=== PATIENT | female | born 1970 | race Caucasian/White ===

== ENCOUNTER 2017-02-14 17:14 | Observation (INO) ==
[2017-02-14 19:02] VITALS: BMI 35.2
--- OUTSIDE RECORDS SUMMARY | 2017-02-14 19:31 | External Medical Summary | Referral Summary ---
:1970 Author Organization [facility] Address [address] [place] [address] Care Team Providers Name Role Phone Rubens Guerra Primary Care Physician Encounter VC Date(s): 09/17/15 - 09/17/15 [facility] [address] [place] [address]- [place] Discharge Disposition: 01-Home or Self Care Attending Physician: Rahul Hood MD Admitting Physician: Rahul Hood MD Vital Signs Most recent to oldest [Reference Range]: 1 Respiratory Rate [14-20 br/min] 18 br/min (09/17/15 10:10 AM) Problem List Condition Effective Dates Status Health Status Informant Hypertension(Confirmed) Active Allergies, Adverse Reactions, Alerts No Known Medication Allergies Medications Advil 400 mg, Oral, q6hr, 0 Refill(s) Start Date: 09/01/15 Status: Orderedhydrochlorothiazide 12.5 mg oral tablet mg tabs, Oral, Daily, 0 Refill(s) Start Date: 05/20/15 Status: Orderedmeloxicam 15 mg oral tablet 15 mg 1 tabs, Oral, Daily, # 20 tabs, 1 Refill(s), Pharmacy: [facility] # [id number], 1 tabs Oral Daily Start Date: 06/12/15 Status: OrderedPercocet 5/325 oral tablet 1 tabs, Oral, q4hr, as needed for pain, # 60 tabs, 0 Refill(s) Start Date: 08/21/15 Stop Date: 08/31/15 Status: Orderedsertraline 50 mg oral tablet mg tabs, Oral, Daily, 0 Refill(s) Start Date: 05/20/15 Status: Ordered Results No data available for this section Immunizations No data available for this section Procedures Procedure Date Related Diagnosis Body Site LeftLeft shoulder arthroscopy with repair of 08/21/15 supraspinatus tendon tear1 Cholecystectomy Diagnostic laparoscopy of female pelvis 1Left shoulder arthroscopy with repair of supraspinatus tendon tear Social History Social History Type Response Smoking Status Former smoker; Type: Cigarettes; Number of years: 15 Assessment and Plan No data available for this section
--- OUTSIDE RECORDS SUMMARY | 2017-02-14 19:31 | External Medical Summary | Referral Summary ---
:1970 Author Organization [facility] Address [address] [place] [address] [place] [address] Care Team Providers Name Role Phone Rubens Guerra Primary Care Physician Encounter VC Date(s): 05/29/15 - 05/29/15 [facility] [address] [place] [address] Discharge Diagnosis: Left shoulder pain Discharge Disposition: 01-Home or Self Care Attending Physician: Tera Kelly MD Admitting Physician: Tera Kelly MD Vital Signs Most recent to oldest [Reference Range]: 1 Temperature Tympanic [36.6-38.1 degC] 36.5 degC *LOW* (05/29/15 3:34 PM) Peripheral Pulse Rate [60-100 bpm] 72 bpm (05/29/15 3:34 PM) Blood Pressure [90-140/60-90 mmHg] 119/72 mmHg (05/29/15 3:34 PM) Problem List No data available for this section Allergies, Adverse Reactions, Alerts No Known Medication Allergies Medications hydrochlorothiazide 12.5 mg oral tablet mg tabs, Oral, Daily, 0 Refill(s) Start Date: 05/20/15 Status: Orderedmeloxicam 15 mg oral tablet 15 mg 1 tabs, Oral, Daily, # 20 tabs, 0 Refill(s), Pharmacy: [facility] # [id number], To be filled when current supply expires, 1 tabs Oral Daily Start Date: 05/29/15 Status: Orderedsertraline 50 mg oral tablet mg tabs, Oral, Daily, 0 Refill(s) Start Date: 05/20/15 Status: Ordered Results No data available for this section Immunizations No data available for this section Procedures No data available for this section Social History Social History Type Response Smoking Status Former smoker; Type: Cigarettes; Number of years: 15 Assessment and Plan Extracted from: Title: Work comp follow up-left shoulder Author: Tera Kelly MD Date: 05/29/15 Assessment/Plan Left shoulder pain Orders: meloxicam, 15 mg 1 tabs, Oral, Daily, # 20 tabs, 0 Refill(s), Pharmacy: [facility] #[id number], To be filled when current supply expires, 1 tabs Oral Daily Shoulder sprain. I reviewed the prior x-ray which was negative. We'll continue meloxicam and range of motion exercises. Refer for physical therapy. Follow-up again in 2 weeks or sooner if needed.
--- OUTSIDE RECORDS SUMMARY | 2017-02-14 19:31 | External Medical Summary | Referral Summary ---
:1970 Author Organization [facility] Address [address] [place] [address] Care Team Providers Name Role Phone Rubens Guerra Primary Care Physician Encounter VC Date(s): 03/05/16 - 03/05/16 [facility] [address] [place] [address]- [place] Discharge Diagnosis: Follow-up examination after orthopedic surgery Discharge Disposition: 01-Home or Self Care Attending Physician: Rahul Hood MD Admitting Physician: Rahul Hood MD Vital Signs Most recent to oldest [Reference Range]: 1 Respiratory Rate [14-20 br/min] 18 br/min (03/05/16 12:04 PM) Problem List Condition Effective Dates Status Health Status Informant Hypertension(Confirmed) Active Motion sickness(Confirmed) Active patient Obesity(Confirmed) Active patient Allergies, Adverse Reactions, Alerts No Known Medication Allergies Medications Advil 400 mg, Oral, q6hr, 0 Refill(s) Start Date: 09/01/15 Status: Orderedhydrochlorothiazide 12.5 mg oral tablet mg tabs, Oral, Daily, 0 Refill(s) Start Date: 05/20/15 Status: Orderedmeloxicam 15 mg oral tablet 15 mg 1 tabs, Oral, Daily, # 20 tabs, 1 Refill(s), Pharmacy: [facility] # [id number], 1 tabs Oral Daily Start Date: 06/12/15 Status: Orderedsertraline 50 mg oral tablet mg tabs, Oral, Daily, 0 Refill(s) Start Date: 05/20/15 Status: Ordered Results No data available for this section Immunizations No data available for this section Procedures Procedure Date Related Diagnosis Body Site Arthroscopy of shoulder with limited debridement1 02/11/16 LeftLeft shoulder arthroscopy with repair of 08/21/15 supraspinatus tendon tear2 Cholecystectomy Diagnostic laparoscopy of female pelvis 1Left shoulder arthroscopy with subacromial decompression and minor debridement of fibrotic material.2Left shoulder arthroscopy with repair of supraspinatus tendon tear Social History Social History Type Response Smoking Status Former smoker; Type: Cigarettes; Number of years: 15 Assessment and Plan No data available for this section
--- OUTSIDE RECORDS SUMMARY | 2017-02-14 19:31 | External Medical Summary | Referral Summary ---
:1970 Author Organization [facility] Address [address] [place] [address] Care Team Providers Name Role Phone Rubens Guerra Primary Care Physician Encounter VC Date(s): 10/03/15 - 10/03/15 [facility] [address] [place] [address]- Discharge Diagnosis: Follow-up examination after orthopedic surgery Discharge Disposition: 01-Home or Self Care Attending Physician: Rahul Hood MD Admitting Physician: Rahul Hood MD Vital Signs Most recent to oldest [Reference Range]: 1 Respiratory Rate [14-20 br/min] 18 br/min (10/03/15 10:35 AM) Problem List Condition Effective Dates Status [...] Daily, # 20 tabs, 1 Refill(s), Pharmacy: [facility] # [id number], 1 tabs Oral Daily Start Date: 06/12/15 [...] 15 Assessment and Plan Extracted from: Title: Office Visit Note Author: Rahul Hood MD Date: 10/03/15 Assessment/Plan 1.Follow-up examination after orthopedic surgery She willcontinue with physical therapy. She is to continue workingwithout restrictions. The patient isto return to clinic in approximately 3 weeks for reevaluation. Ordered: Postoperative Est [id number]
--- OUTSIDE RECORDS SUMMARY | 2017-02-14 19:31 | External Medical Summary | Referral Summary ---
:1970 Author [facility] Address [address] [place] [address] [place] [address] Care Team Providers Name Role Phone Rubens Guerra Primary Care Physician Encounter VC Date(s): 06/12/15 - 06/12/15 [facility] [address] [place] [id number] Discharge Diagnosis: Left shoulder pain Discharge Disposition: 01-Home or Self Care Attending Physician: Tera Kelly MD Admitting Physician: Tera Kelly MD Vital Signs Most recent to oldest [Reference Range]: 1 Temperature Tympanic [36.6-38.1 degC] 36.7 degC (06/12/15 3:18 PM) Peripheral Pulse Rate [60-100 bpm] 75 bpm (06/12/15 3:18 PM) Blood Pressure [90-140/60-90 mmHg] 117/77 mmHg (06/12/15 3:18 PM) Problem List No data available for this section Allergies, Adverse Reactions, Alerts No Known Medication Allergies Medications hydrochlorothiazide 12.5 mg oral tablet mg tabs, Oral, Daily, 0 Refill(s) Start Date: 05/20/15 Status: Orderedmeloxicam 15 mg oral tablet 15 mg 1 tabs, Oral, Daily, # 20 tabs, 1 Refill(s), Pharmacy: [facility] # [id number], 1 tabs Oral Daily Start Date: 06/12/15 [...] Extracted from: Title: Office Visit Note Author: Tera Kelly MD Date: 06/12/15 Assessment/Plan Left shoulder pain Orders: meloxicam, 15 mg 1 tabs, Oral, Daily, # 20 tabs, 1 Refill(s), Pharmacy: [facility] #[id number], 1 tabs Oral Daily Continue current management including continued meloxicam. Once again we we' ll try to get physical therapy arranged. Follow-up with me again in 2-3 more weeks.
--- OUTSIDE RECORDS SUMMARY | 2017-02-14 19:31 | External Medical Summary | Referral Summary ---
:1970 Author Organization [facility] Address [address] [place] [address] Care Team Providers Name Role Phone Rubens Guerra Primary Care Physician Encounter VC Date(s): 02/27/16 - 02/27/16 [facility] [address] [place] [address]- Discharge Diagnosis: Follow-up examination after orthopedic surgery Discharge Disposition: 01-Home or Self Care Attending Physician: Rahul Hood MD Admitting Physician: Rahul Hood MD Vital Signs Most recent to oldest [Reference Range]: 1 Respiratory Rate [14-20 br/min] 18 br/min (02/27/16 11:29 AM) Problem List Condition Effective Dates Status [...] Daily, # 20 tabs, 1 Refill(s), Pharmacy: [facility] # [id number], 1 tabs Oral Daily Start Date: 06/12/15 [...]
--- OUTSIDE RECORDS SUMMARY | 2017-02-14 19:31 | External Medical Summary | Referral Summary ---
:1970 Author Organization [facility] Address [address] [place] [address] Care Team Providers Name Role Phone Rubens Guerra Primary Care Physician Encounter VC Date(s): 02/11/16 - 02/11/16 [facility] [address] [place], [place] [address] Discharge Diagnosis: Subacromial impingement of left shoulder Discharge Disposition: 01-Home or Self Care Attending Physician: Rahul Hood MD Admitting Physician: Rahul Hood MD Vital Signs Most recent to oldest [Reference Range]: 1 Temperature Temporal Artery [36.3-37.8 degC] 36.7 degC (02/11/16 8:47 AM) Peripheral Pulse Rate [60-100 bpm] 63 bpm (02/11/16 8:47 AM) Respiratory Rate [14-20 br/min] 20 br/min (02/11/16 8:47 AM) Blood Pressure [90-140/60-90 mmHg] 166/93 mmHg *HI* (02/11/16 8:47 AM) SpO2 96 % (02/11/16 8:47 AM) Problem List Condition Effective Dates Status [...] Daily, # 20 tabs, 1 Refill(s), Pharmacy: [facility] # [id number], 1 tabs Oral Daily Start Date: 06/12/15 Status: OrderedPercocet 5/325 oral tablet 1 tabs, Oral, q4hr, as needed for pain, # 60 tabs, 0 Refill(s) Start Date: 02/11/16 Stop Date: 02/21/16 Status: OrderedPercocet 5/325 oral tablet 1 tabs, Oral, q4hr, as needed for pain, # 60 tabs, 0 Refill(s) Start Date: 08/21/15 Stop Date: 08/31/15 Status: Orderedsertraline 50 mg oral tablet mg tabs, Oral, Daily, 0 Refill(s) Start Date: 05/20/15 Status: Ordered Results Chemistry Most recent to oldest [Reference Range]: 1 Potassium Venous [3.5-5.1 mmol/L] 3.9 mmol/L 1 (02/11/16 9:10 AM) 1Result Comment: This test was performed on a whole blood specimen. The presence or absence of hemolysis cannot be assessed. Hemolysis can falsely elevate potassium levels. Normals are for venous specimens only. Immunizations No data available for this section Procedures Procedure Date Related Diagnosis Body Site LeftLeft shoulder arthroscopy with repair of 08/21/15 supraspinatus tendon tear1 Cholecystectomy Diagnostic laparoscopy of female pelvis 1Left shoulder arthroscopy with repair of supraspinatus tendon tear Social History Social History Type Response Smoking Status Former smoker; Type: Cigarettes; Number of years: 15 Assessment and Plan Extracted from: Title: Ambulatory Patient Education Author: Doris Leon RN Date: 02/11/[address] [facility] [place] [phone] Post Op Shoulder Arthroscopy Directions Via [facility], Dr. Rahul Hood M.D. General Instructions: Take aspirin 325 mg once a day for 10 days post op. This will reduce the risk of developing a blood clot in the extremities. Next dose of pain medicine may be given at Take your pain medication as directed with food to prevent stomach upset. You may also want to take a stool softener, as some narcotic medications can cause constipation. Use your TENS unit at a minimum 20 min. 3 times per day, however there is no maximum time limit to the use of the TENS. Do NOT drive or operate heavy machinery for the next 24 hrs or WHILE TAKING PAIN MEDICATION. Do not sign any important documents or make important decisions for 24 hrs following surgery. When taking pain medication, be careful as you walk or climb stairs as dizziness is common. Check temperature every FOUR hours during the day for TWO days, call Dr. Hood if greater than 100.4 F Icing and Elevation One of the keys to success after surgery is the prevention of swelling. The best way to reduce swelling is to elevate your shoulder. Use of a recliner or pillows will be helpful throughout the day and night. You should also use the ice machine or ice packs regularly. If using ice packs, please avoid direct contact with the skin and only keep the ice on for 20 minutes at a time. Immediately after surgery, the dressing will remain on and it is OK to leave ice on constantly as the dressing provides a buffer against the cold. Please leave the dressing on until you return to the clinic. You can bathe , however you must keep the dressing dry! Sling/immobilizer and Activity You will need to remain in your sling/immobilizer with exception of bathing , changing clothes, and to do your home exercise program. You should sleep with immobilizer on. Complete home exercise program as directed post-op (elbow, wrist and hand range of motion, pendulums) 3 times per day at minimum. See illustrations for directions. Weeks 1-6 keep all exercises at PASSIVE only. Your repair needs time to heal back into the bone. Avoid lifting or sudden jerking motions, reaching behind back or weight bearing. Avoid overstressing healing tissue. You may heat prior to stretching/exercising and ice after stretching/ exercising. Return to clinic You will return to clinic in 5-7 days post op for suture removal, your dressing should remain on until then. Contact information If you have any further questions, please contact Dr. Menjivar office at . Dr. Menjivar nurse will promptly assist you. In an emergency, call [phone] or , if you cannot reach your physician. If you find that you cannot contact your physician, but feel that your signs and symptoms warrant a physici ans attention, go to the Emergency Room closest to you. [facility] [place] [phone] Shoulder ROM: Pendulum (Circular) Let arm move in [place] clockwise then counterclockwise, by rocking body weight in circular pattern. [place] 25 times each direction per set. Do 1 set per session. Do 3 sessions per day. AROM: Elbow Flexion/Extension With hand palm Up, gently bend elbow as far as possible. Then Straighten arm as far as possible. Repeat 25 times per set. Do 1 set per session. Do 3 sessions per day. Wrist circumduction (Active) With fingers curls, move slowly at wrist in clockwise circles 25 times Repeat counterclockwise Do not move elbow or shoulder Do 1 set per session Do 3 sessions per day. No follow up information was provided.
--- OUTSIDE RECORDS SUMMARY | 2017-02-14 19:31 | External Medical Summary | Referral Summary ---
:1970 Author Organization [facility] Address [address] [place] [address] Care Team Providers Name Role Phone Rubens Guerra Primary Care Physician Encounter VC Date(s): 10/24/15 - 10/24/15 [facility] [address] [place] [address] [place] Discharge Diagnosis: Follow-up examination after orthopedic surgery Discharge Disposition: 01-Home or Self Care Attending Physician: Rahul Hood MD Admitting Physician: Rahul Hood MD Vital Signs Most recent to oldest [Reference Range]: 1 Respiratory Rate [14-20 br/min] 18 br/min (10/24/15 11:02 AM) Problem List Condition Effective Dates Status [...] Daily, # 20 tabs, 1 Refill(s), Pharmacy: [facility] # [id number], 1 tabs Oral Daily Start Date: 06/12/15 [...] Visit Note Author: Rahul Hood MD Date: 10/24/15 Assessment/Plan 1.Follow-up examination after orthopedic surgery I talked to the patient about the treatment options. We will continue with physical therapyto work on strength and range of motion. The patie nt will return to our clinic in1 month for reevaluation. She was provided a release to return to work full duty without restrictions. Ordered: Postoperative Est [id number]
--- OUTSIDE RECORDS SUMMARY | 2017-02-14 19:32 | External Medical Summary | Referral Summary ---
:1970 Author Organization [facility] Address [address] [place] [address] Care Team Providers Name Role Phone Rubens Guerra Primary Care Physician Encounter VC Date(s): 09/01/15 - 09/01/15 [facility] [address] [place] [address]- Discharge Diagnosis: Follow-up examination after orthopedic surgery Discharge Disposition: 01-Home or Self Care Attending Physician: Rahul Hood MD Admitting Physician: Rahul Hood MD Vital Signs Most recent to oldest [Reference Range]: 1 Respiratory Rate [14-20 br/min] 18 br/min (09/01/15 10:26 AM) Problem List Condition Effective Dates Status [...] Daily, # 20 tabs, 1 Refill(s), Pharmacy: [facility] # [id number], 1 tabs Oral Daily Start Date: 06/12/15 [...] Visit Note Author: Rahul Hood MD Date: 09/01/15 Assessment/Plan 1.Follow-up examination after orthopedic surgery She will begin physical therapy twice per week for the next 2 weeks. I will see the patient back in clinic in 2 weeks for reevaluation. She is to remain in the sling untilthe next follow-up appointment. Ordered: Postoperative Est [id number] Orders: Request for Therapies
--- OUTSIDE RECORDS SUMMARY | 2017-02-14 19:32 | External Medical Summary | Referral Summary ---
:1970 Author Organization [facility] Address [address] [place] [address] [place] [address] Care Team Providers Name Role Phone Rubens Guerra Primary Care Physician Encounter VC Date(s): 05/20/15 - 05/20/15 [facility] [address] [place] [address] Discharge Diagnosis: Left shoulder pain Discharge Disposition: 01-Home or Self Care Attending Physician: Tera Kelly MD Admitting Physician: Tera Kelly MD Vital Signs Most recent to oldest [Reference Range]: 1 Temperature Tympanic [36.6-38.1 degC] 36.3 degC *LOW* (05/20/15 4:23 PM) Peripheral Pulse Rate [60-100 bpm] 65 bpm (05/20/15 4:23 PM) Blood Pressure [90-140/60-90 mmHg] 139/80 mmHg (05/20/15 4:23 PM) Problem List No data available for this section Allergies, Adverse Reactions, Alerts No Known Medication Allergies Medications hydrochlorothiazide 12.5 mg oral tablet mg tabs, Oral, Daily, 0 Refill(s) Start Date: 05/20/15 Status: Orderedmeloxicam 15 mg oral tablet 15 mg 1 tabs, Oral, Daily, # 20 tabs, 0 Refill(s), Pharmacy: [facility] # [id number], 1 tabs Oral Daily Start Date: 05/20/15 Status: Orderedsertraline 50 mg oral tablet mg [...] Extracted from: Title: Ambulatory Patient Education Author: Tera Kelly MD Date: Family Medicine Shoulder Range of Motion Exercises The shoulder is the most flexible joint in the human body. Because of this it is also the most unstable joint in the body. All ages can develop shoulder problems. Early treatment of problems is necessar y for a good outcome. People react to shoulder pain by decreasing the movement of the joint. After a brief period of time, the shoulder can become "frozen". This is an almost complete loss of the abilit y to move the damaged shoulder. Following injuries your caregivers can give you instructions on exercises to keep your range of motion (ability to move your shoulder freely), or regain it if it has been lost. EXERCISES EXERCISES TO MAINTAIN THE MOBILITY OF YOUR SHOULDER: Codman's Exercise or Pendulum Exercise This exercise may be performed in a prone (face-down) lying position or standing while leaning on a chair with the opposite arm. Its purpose is to relax the muscles in your shoulder and slowly but surely increase the range of motion and to relieve pain. Lie on your stomach close to the side edge of the bed. Let your weak arm hang over the edge of the bed. Relax your shoulder, arm and hand. Let your shoulder blade relax and drop down. Slowly and gently swing your arm forward and back. Do not use your neck muscles; relax them. It might be easier to have someone else gently start swinging your arm. As pain decreases, increase your swing. To start, arm swing should begin at 15 degree angles. In time and as pain lessens, move to 30-45 degree angles. Start with swinging for about 15 seconds, and work towards swinging for 3 to 5 minutes. This exercise may also be performed in a standing/bent over position. Stand and hold onto a sturdy chair with your good arm. Bend forward at the waist and bend your knees slightly to help protect your back. Relax your weak arm, let it hang limp. Relax your shoulder blade and let it drop. Keep your shoulder relaxed and use body motion to swing your arm in small circles. Stand up tall and relax. Repeat motion and change direction of circles. Start with swinging for about 30 seconds, and work towards swinging for 3 to 5 minutes. STRETCHING EXERCISES: Lift your arm out in front of you with the elbow bent at 90 degrees. Using your other arm gently pull the elbow forward and across your body. Bend one arm behind you with the palm facing outward. Using the other arm , hold a towel or rope and reach this arm up above your head, then bend it at the elbow to move your wrist to behind your ne ck. Grab the free end of the towel with the hand behind your back. Gently pull the towel up with the hand behind your neck, gradually increasing the pull on the hand behind the small of your back. Then, gradually pull down with the hand behind the small of your back. This will pull the hand and arm behind your neck further. Both shoulders will have an increased range of motion with repetition of this exercise. STRENGTHENING EXERCISES: Standing with your arm at your side and straight out from your shoulder with the elbow bent at 90 degrees, hold onto a small weight and slowly raise your hand so it points straight up in the air. R epeat this five times to begin with, and gradually increase to ten times. Do this four times per day. As you grow stronger you can gradually increase the weight. Repeat the above exercise, only this time using an elastic band. Start with your hand up in the air and pull down until your hand is by your side. As you grow stronger, gradually increase the amoun t you pull by increasing the number or size of the elastic bands. Use the same amount of repetitions. Standing with your hand at your side and holding onto a weight, gradually lift the hand in front of you until it is over your head. Do the same also with the hand remaining at your side and lift th e hand away from your body until it is again over your head. Repeat this five times to begin with, and gradually increase to ten times. Do this four times per day. As you grow stronger you can gradually increase the weight. Document Released: 01/29/2004 Document Revised: 05/07/2014 Document Reviewed: 05/02/2006 ExitCare Patient Information 2015 [employer], [facility]. This information is not intended to replace advice given to you by your health care provider. Make sure you discuss any questions you have with your health care provider. No follow up information was provided. Extracted from: Title: Workmen's Comp. Author: Tera Kelly MD Date: 05/20/15 Assessment/Plan Left shoulder pain Ordered: XR Shoulder Complete Left Orders: meloxicam, 15 mg 1 tabs, Oral, Daily, # 20 tabs, 0 Refill(s), Pharmacy: [facility] #[id number], 1 tabs Oral Daily X-rays appear negative. Will use anti-inflammatory. May also use ice or heat. I emphasized importance of maintaining range of motion and demonstrated pendulum exercises. Follow-up in about 10 days or sooner if needed.
--- OUTSIDE RECORDS SUMMARY | 2017-02-14 19:32 | External Medical Summary | Referral Summary ---
:1970 Author Organization [facility] Address [address] [place] [address] Care Team Providers Name Role Phone Rubens Guerra Primary Care Physician Encounter VC Date(s): 12/26/15 - 12/26/15 [facility] [address] [place] [address] [place] Discharge Disposition: 01-Home or Self Care Attending Physician: Rahul Hood MD Admitting Physician: Rahul Hood MD Vital Signs Most recent to oldest [Reference Range]: 1 Respiratory Rate [14-20 br/min] 18 br/min (12/26/15 10:53 AM) Problem List Condition Effective Dates Status [...] Daily, # 20 tabs, 1 Refill(s), Pharmacy: [facility] # [id number], 1 tabs Oral Daily Start Date: 06/12/15 Status: OrderedPercocet 5/325 oral tablet 1 tabs, Oral, q4hr, as needed for pain, # 60 tabs, 0 Refill(s) Start Date: 08/21/15 Stop Date: 08/31/15 Status: Orderedsertraline 50 mg oral tablet mg tabs, Oral, Daily, 0 Refill(s) Start Date: 05/20/15 Status: Ordered Results Chemistry Most recent to oldest [Reference Range]: 1 Estimated Creatinine Clearance 88.95 mL/min (12/26/15 10:55 AM) Immunizations No data available for this section [...]
--- OUTSIDE RECORDS SUMMARY | 2017-02-14 19:32 | External Medical Summary | Referral Summary ---
:1970 Author Organization [facility] Address [address] [place] [address] Care Team Providers Name Role Phone Rubens Guerra Primary Care Physician Encounter VC Date(s): 04/23/16 - 04/23/16 [facility] [address] [place] [address] [place] Discharge Diagnosis: Left shoulder pain Discharge Disposition: 01-Home or Self Care Attending Physician: Rahul Hood MD Admitting Physician: Rahul Hood MD Vital Signs Most recent to oldest [Reference Range]: 1 Respiratory Rate [14-20 br/min] 20 br/min (04/23/16 11:06 AM) Problem List Condition Effective Dates Status [...] Refill(s), Pharmacy: [facility] # [id number], 1 tabs Oral Daily Start Date: 06/12/15 Status: Orderedsertraline 50 mg oral tablet mg tabs, Oral, Daily, 0 Refill(s) Start Date: 05/20/15 Status: OrderedVoltaren 1% topical gel 4 g, Topical, QID, as needed for pain, not to exceed 16 grams/day/single joint of lower extremities,# 100 g, 0 Refill(s) Start Date: 03/26/16 Status: Ordered Results No data available for [...]
--- OUTSIDE RECORDS SUMMARY | 2017-02-14 19:32 | External Medical Summary | Referral Summary ---
:1970 Author Organization [facility] Address [address] [place] [address] Care Team Providers Name Role Phone Rubens Guerra Primary Care Physician Encounter VC Date(s): 02/20/16 - 02/20/16 [facility] [address] [place] [address]- Discharge Diagnosis: Follow-up examination after orthopedic surgery Discharge Disposition: 01-Home or Self Care Attending Physician: Rahul Hood MD Admitting Physician: Rahul Hood MD Vital Signs Most recent to oldest [Reference Range]: 1 Respiratory Rate [14-20 br/min] 18 br/min (02/20/16 11:02 AM) Problem List Condition Effective Dates [...] Daily, # 20 tabs, 1 Refill(s), Pharmacy: [facility] # [id number], 1 tabs Oral Daily Start Date: 06/12/15 [...]
--- OUTSIDE RECORDS SUMMARY | 2017-02-14 19:32 | External Medical Summary | Referral Summary ---
:1970 Author Organization [facility] Address [address] [place] [address] Care Team Providers Name Role Phone Rubens Guerra Primary Care Physician Encounter VC Date(s): 05/25/16 - 05/25/16 [facility] [address] [place] [address] [place] Discharge Diagnosis: Left shoulder pain Discharge Disposition: 01-Home or Self Care Attending Physician: Rahul Hood MD Admitting Physician: Rahul Hood MD Vital Signs Most recent to oldest [Reference Range]: 1 Respiratory Rate [14-20 br/min] 18 br/min (05/25/16 2:10 PM) Problem List Condition Effective Dates Status [...] Daily, # 20 tabs, 1 Refill(s), Pharmacy: [facility] # [id number], 1 tabs Oral Daily Start Date: 06/12/15 [...] Visit Note Author: Rahul Hood MD Date: 05/25/16 Assessment/Plan 1.Left shoulder pain She will continue a home exercise programover the ensuing weeks. She can return to workduty without restrictions. She will have no permanent restrictions applied. She is currently at her maximal medical improvement and therefore we will provide her with release from our care today. Based on the [place] [employer] Association'ssixth editionguides,she has a 10 percent permanent pa rtial impairment rating of the left upper extremity at the level of the shoulder. There is no significant anticipated need for continued physical therapyor other treatment in the future. Ordered: Office Visit Level 2 Est [id number]
--- OUTSIDE RECORDS SUMMARY | 2017-02-14 19:32 | External Medical Summary | Referral Summary ---
:1970 Author Organization [facility] Address [address] [place] [address] Care Team Providers Name Role Phone Rubens Guerra Primary Care Physician Encounter VC Date(s): 08/21/15 - 08/21/15 [facility] [address] [place], [place] [address] Discharge Diagnosis: Partial tear of left rotator cuff Discharge Disposition: 01-Home or Self Care Attending Physician: Rahul Hood MD Admitting Physician: Rahul Hood MD Vital Signs Most recent to oldest [Reference Range]: 1 Temperature Temporal Artery [36.3-37.8 degC] 36.7 degC (08/21/15 8:58 AM) Peripheral Pulse Rate [60-100 bpm] 59 bpm *LOW* (08/21/15 8:58 AM) Respiratory Rate [14-20 br/min] 18 br/min (08/21/15 8:58 AM) Blood Pressure [90-140/60-90 mmHg] 116/81 mmHg (08/21/15 8:58 AM) SpO2 98 % (08/21/15 8:58 AM) Problem List Condition Effective Dates Status Health Status Informant Hypertension(Confirmed) Active Allergies, Adverse Reactions, Alerts No Known Medication Allergies Medications hydrochlorothiazide 12.5 mg oral tablet mg tabs, Oral, Daily, 0 Refill(s) Start Date: 05/20/15 Status: Orderedmeloxicam 15 mg oral tablet 15 mg 1 tabs, Oral, Daily, # 20 tabs, 1 Refill(s), Pharmacy: [facility] # [id number], 1 tabs Oral Daily Start Date: 06/12/15 [...] Extracted from: Title: Ambulatory Patient Education Author: Tomasa Renteria RN Date: 08/21/15 Shoulder Exercises after Surgery Take your pain medication prior to starting the exercises. Repeat each exercise 5 times. Perform exercises 3 times per day. Each exercise session should last no more than 20 minutes. Use Ice immediately after the exercises are performed. Pendulum Bent over with head down, let arm move in a walker river clockwise, then counter- clockwise by rocking body weight in a circular pattern. Chidi Standing or sitting, use unaffected arm to lift affected arm with chidi. Let gravity lower affected arm. Forward Flexion Sitting or lying on back, grasp the wrist of the affected arm with the opposite hand and lift above head. External Rotation Lying on back, bend affected arm 90 at elbow. Unaffected arm pushes the affected arm outward with a stick, while keeping the elbow against side of body Extension Standing, grasp stick behind back. Push backward using unaffected arm to supply power. Internal Rotation Standing, grasp affected arm with unaffected hand behind your back lifting hand up. [facility] [phone] Post Op Shoulder Arthroscopy Directions Via [facility], Dr. Rahul Hood M.D. General Instructions: [...] promptly assist you. In an emergency, call [phone] or , if you cannot reach your physician. If you find that you cannot contact your physician, but feel that your signs and symptoms warrant a physici ans attention, go to the Emergency Room closest to you. No follow up information was provided.
--- OUTSIDE RECORDS SUMMARY | 2017-02-14 19:32 | External Medical Summary | Referral Summary ---
:1970 Author Organization [facility] Address [address] [place] [address] Care Team Providers Name Role Phone Rubens Guerra Primary Care Physician Encounter VC Date(s): 08/08/15 - 08/08/15 [facility] [address] [place] [address]- Discharge Diagnosis: Incomplete tear of left rotator cuff Discharge Disposition: 01-Home or Self Care Attending Physician: Rhaul Hood MD Admitting Physician: Rahul Hood MD Vital Signs No data available for this section Problem List Condition Effective Dates Status Health Status Informant Hypertension(Confirmed) Active Allergies, Adverse Reactions, Alerts No Known Medication Allergies Medications hydrochlorothiazide 12.5 mg oral tablet mg tabs, Oral, Daily, 0 Refill(s) Start Date: 05/20/15 Status: Orderedmeloxicam 15 mg oral tablet 15 mg 1 tabs, Oral, Daily, # 20 tabs, 1 Refill(s), Pharmacy: [facility] # [id number], 1 tabs Oral Daily Start Date: 06/12/15 Status: Orderedsertraline 50 mg oral tablet mg tabs, Oral, Daily, 0 Refill(s) Start Date: 05/20/15 Status: Ordered Results No data available for this section Immunizations No data available for this section Procedures Procedure Date Related Diagnosis Body Site Cholecystectomy Diagnostic laparoscopy of female pelvis Social History Social History Type Response Smoking Status Former smoker; Type: Cigarettes; Number of years: 15 Assessment and Plan Extracted from: Title: Office Visit Note Author: Rahul Hood MD Date: 08/08/15 Assessment/Plan 1.Incomplete tear of left rotator cuff I reviewed theMRI with the patient. She has amoderately severepartial tear of the supraspinatus tendonat the greater tuberosity. There is also a small amount of bone marrow edemaat the insertion of the supraspinatus. After reviewing various treatment options with the patient, she has elected to proceedwith shoulder arthroscopy and repair o f the partial articular sided tear. The patient is aware of the benefits, risks, alternatives, and complications associated with this procedure and agrees to proceed as planned. It is in my opinion that the work-related event of05/19/15 is the prevailing factor related to the patient's current medical condition partial impairment. Ordered: Office Visit Level 3 New [id number]
--- OUTSIDE RECORDS SUMMARY | 2017-02-14 19:32 | External Medical Summary | Referral Summary ---
:1970 Author Organization [facility] Address [address] [place] [address] Care Team Providers Name Role Phone Rubens Guerra Primary Care Physician Encounter VC Date(s): 03/26/16 - 03/26/16 [facility] [address] [place] [address]- Discharge Diagnosis: Left shoulder pain Discharge Disposition: 01-Home or Self Care Attending Physician: Rahul Hood MD Admitting Physician: Rahul Hood MD Vital Signs Most recent to oldest [Reference Range]: 1 Respiratory Rate [14-20 br/min] 18 br/min (03/26/16 11:11 AM) Problem List Condition Effective Dates Status [...] Daily, # 20 tabs, 1 Refill(s), Pharmacy: [facility] # [id number], 1 tabs Oral Daily Start Date: 06/12/15 [...]
--- OUTSIDE RECORDS SUMMARY | 2017-02-14 19:32 | External Medical Summary | Referral Summary ---
:1970 Author Organization [facility] Address [address] [place] [address] Care Team Providers Name Role Phone Rubens Guerra Primary Care Physician Encounter VC Date(s): 01/16/16 - 01/16/16 [facility] [address] [place] [address] [place] Discharge Diagnosis: Painful orthopaedic hardware Discharge Diagnosis: Left shoulder pain Discharge Disposition: 01-Home or Self Care Attending Physician: Rahul Hood MD Admitting Physician: Rahul Hood MD Vital Signs Most recent to oldest [Reference Range]: 1 Respiratory Rate [14-20 br/min] 18 br/min (01/16/16 11:52 AM) Problem List Condition Effective Dates Status Health Status Informant Hypertension(Confirmed) Active Obesity(Confirmed) Active patient Allergies, Adverse Reactions, Alerts No Known Medication Allergies Medications Advil 400 mg, Oral, q6hr, 0 Refill(s) Start Date: 09/01/15 Status: Orderedhydrochlorothiazide 12.5 mg oral tablet mg tabs, Oral, Daily, 0 Refill(s) Start Date: 05/20/15 Status: Orderedmeloxicam 15 mg oral tablet 15 mg 1 tabs, Oral, Daily, # 20 tabs, 1 Refill(s), Pharmacy: [facility] # [id number], 1 tabs Oral Daily Start Date: 06/12/15 [...]
--- NOTE | 2017-02-15 05:10 | Cardiology Consult Note ---
History of Present Illness Consult date: 02/15/17 <AideAmie Zeeshan - 02/15/17 05:10> Requesting physician: Rubens Guerra <Chris Noblerossana Byers - 02/15/17 05:10> Chief complaint: Palpitations, chest pain, syncope <Amie Noble Zeeshan - 05:10> History of present illness: This is a 46 year old patient with a history of HTN , DSLD obesity and endometriosis. Over the last 3-4 years she went from 350 to 198 pounds. On 07/2016 she had gastric bypass surgery in [place] and lost the last 70 pounds after the surgery. She has been taking lisinopril/HCTZ for years. States her BP fluctuates from the 90's to 140's. When her SBP is in the 90's, she feels weak and can't function or think well. She was orthostatic at Dr. Guerra's office per pt. She is admitted after a syncopal episode. One week ago Tuesday she was sitting outside with her boyfriend when her arms stiffened up, Her fists clenched, her face contorted, and she passed out. He stated it lasted about 5 minutes. Last Tuesday she was with her girlfriend and she passed out while sitting. Yesterday, Tuesday, she was by herself and passed out. She knows she passed out because she awoke sideways in her large chair. Everytime she passes out, she feel awlful right before it happens. she does not remember the episode and when she awakes, she feel fine. She has never passed out or had a seizure before. No one in the family has had syncopal episodes or at a young age. She does not drink energy drinks. she had an allergy shot 2 weeks ago. She takes her meds regularly. She takes Zytec and Zzyzal for her allergies. she takes vitamins and biotin. Dr. Potts was consulted for syncopal episodes, bradycardia, palpitations, and abnormal ECG. <AideAmie T - 02/15/17 05:53> Review of Systems - Constitutional Constitutional: Present: weight loss (on purpose.). Absent: chills, fever(s), headache(s), malaise <Amie Noble 02/15/17 05:53> - EENMT Eyes: Absent: blurry vision <Amie Noble 02/15/17 05:53> Balance: Absent: vertigo <Amie Noble 02/15/17 05:53> Nose: Present: allergies <Amie Noble 02/15/17 05:53> Mouth/Throat: Absent: sore throat <Amie Noble 02/15/17 05:53> - Cardiovascular Cardiovascular: Present: chest pain (with the palpitations), palpitations, syncope. Absent: dyspnea on exertion, orthopnea, edema, hx of rheumatic fever <Amie Noble 02/15/17 05:53> Rhythm: Present: regular rhythm <Amie Noble 02/15/17 05:53> Vascular: Absent: pedal edema <Amie Noble 02/15/17 05:53> - Respiratory Respiratory: Absent: cough, dyspnea, dyspnea on exertion, wheezing, chest congestion <Amie Noble 02/15/17 05:53> - Gastrointestinal Gastrointestinal: Absent: abdominal pain, constipation, diarrhea, dyspepsia, nausea <Amie Noble 02/15/17 05:53> - Genitourinary Genitourinary: Absent: dysuria, hematuria <Amie Noble 02/15/17 05:53> Menstruation: amenorrhea <Amie Noble 02/15/17 05:53> Genitourinary Comments: She has been on some sort of control for the last 16 years due to endometriosis. She has had a Merina IUD in for the last 5 years. She has not f/u with her [employer] for years. . <Amie Noble 02/15/17 05:53> - Musculoskeletal Musculoskeletal: Absent: back pain, muscle weakness, myalgias, neck pain < Amie Noble 02/15/17 05:53> - Integumentary/Breasts Integumentary: Absent: change in nails, rash, swelling <AideAmie Byers 07/30 05:53> - Neurological Neurological: Absent: abnormal speech, confusion, dizziness, focal weakness, loss of vision, memory loss, vertigo <Amie Noble 02/15/17 05:53> Neurological Comments: She has passed otu 3 times in the last 1 1/2 week. The first time her boyfriend described it as stiffened arms, clenched fists, contorted face. and she passed out. She feels awful before the episode, but feels fine after the episode. She does not remember the episodes. <Amie Noble 02/15/17 05:53> - Psychiatric Psychiatric: Absent: anxiety, depression <AideAmierossaan Garcia 02/15/17 05:53> - Endocrine Endocrine: Present: palpitations. Absent: cold intolerance, heat intolerance <AideAmierossana Garcia 02/15/17 05:53> - Hematologic/Lymphatic Hematologic/Lymphatic: Absent: easy bleeding, easy bruising <AideAmie T 02/15/17 05:53> - Allergic/Immunologic Allergic/Immunologic: She had a an allergy shot 2 weeks ago. she gets an allergy shot periodicaly. She takes Zyrtec and Zzyzal <AideChrisrossana Byers 02/15/17 05:53> [facility] Patient Stated Medical History Seizures Yes: just recently Syncope Yes Hypertension Yes Pneumonia Yes: years ago Hx Urinary Tract Infection Yes: in the past Abnormal Pap Yes Endometriosis Yes Clinic Medical History (Last Updated 01/26/17 @ 08:43 by RONALD Valles) HTN (hypertension) (Chronic Medical) Hypercholesteremia (Chronic Medical) Metabolic syndrome (Chronic Medical) OCD (obsessive compulsive disorder) (Chronic Medical) Obesity (Chronic Medical) <Jose Potts - 02/18/17 15:34> Patient Stated Medical History Seizures Yes: just recently Syncope Yes Hypertension Yes Pneumonia Yes: years ago Hx Urinary Tract Infection Yes: in the past Abnormal Pap Yes Endometriosis Yes Clinic Medical History (Last Updated 01/26/17 @ 08:43 by RONALD Valles) HTN (hypertension) (Chronic Medical) Hypercholesteremia (Chronic Medical) Metabolic syndrome (Chronic Medical) OCD (obsessive compulsive disorder) (Chronic Medical) Obesity (Chronic Medical) <Amie Noble 02/15/17 05:53> Surgical History: [id number]. shoulder surgery 07/2015. 3 laproscopic surgeries for endometriosis. <Amie Noble 02/15/17 05:53> Family History: Family History (Last Updated 01/26/17 @ 08:46 by RONALD Valles) Father , 54 Diabetes mellitus Myocardial infarction Unknown Diabetes mellitus Hypertension Unknown Stroke Heart disease Lung disease <Jose Potts - 02/18/17 15:34> Family History (Last Updated 01/26/17 @ 08:46 by RONALD Valles) Father , 54 Diabetes mellitus Myocardial infarction Unknown Diabetes mellitus Hypertension Unknown Stroke Heart disease Lung disease She has 3 children: ages: 28, 18. and 16. No health problems. They are good kids per pt. <Amie Noble 02/15/17 05:53> - Social History Smoking status: Current some day smoker <Amie Noble 02/15/17 05:53> Time spent discussing smoking cessation with patient: 3 to 10 minutes < Amie Noble 02/15/17 05:53> Substance use type: does not use <Amie Noble 02/15/17 05:53> Alcohol intake frequency: a few times a month <Amie Noble 02/15/17 05: 53> Housing: house <Amie Noble 02/15/17 05:53> Household members: children <Amie Noble 02/15/17 05:53> Current occupational status: employed <Amie Noble 02/15/17 05:53> Current occupation: Student coordinator for foreign students. <Amie Noble 02/15/17 05:53> Current occupational exposures/hazards: No <Amie Noble 02/15/17 05:53> Does patient use chewing tobacco?: No <Amie Noble 02/15/17 05:53> Current residence: Apartment/Private Home <Amie Noble 02/15/17 05:53> Medications Allergies Allergy/AdvReac Type Severity Reaction Status Date / Time No Known Allergies Allergy Unverified 02/14/17 20:52 <KhushbudeniseGonzalesJose - 02/18/17 15:34> Exam Vital signs: Temperature 96.8 F 02/15/17 16:00 Pulse Rate 51 L 02/15/17 16:00 Respiratory Rate 16 02/15/17 16:00 Blood Pressure 125/68 02/15/17 16:00 Pulse Oximetry 96 02/15/17 16:00 <Jose Potts - 02/18/17 15:34> Temperature 96.6 F L 02/15/17 00:12 Pulse Rate 55 L 02/15/17 00:12 Respiratory Rate 16 02/15/17 00:12 Blood Pressure 116/72 02/15/17 00:12 Pulse Oximetry 97 02/15/17 00:12 <Amie Noble - 02/15/17 05:53> - Constitutional no acute distress, well nourished, well developed, obese, cooperative < Amie Noble 02/15/17 05:53> - Routine HEENT Exam Head: Present: normocephalic, atraumatic <Amie Noble 02/15/17 05:53> Eye: Present: EOMI, normal accommodation <Amie Noble 02/15/17 05:53> ENT: Present: mucous membranes moist, dentition normal <Amie Noble 07/30 05:53> - Routine Neck Exam Present: trachea midline. Absent: JVD, carotid bruit <Amie Noble 07/30 05:53> - Routine Chest/Breast/Axilla Exam Chest wall: Absent: tenderness <Amie Noble 02/15/17 05:53> - Routine Respiratory Exam Present: CTA bilaterally <Amie Noble 02/15/17 05:53> - Routine Cardiovascular Exam Present: RRR. Absent: JVD <Amie Noble 02/15/17 05:53> - Routine Abdominal Exam Present: soft, normoactive bowel sounds, non tender <Amie Noble 05:53> - Routine Extremities Exam Absent: cyanosis, clubbing, edema <AideAmie Zeeshan - 02/15/17 05:53> - Routine Back/Spine/Pelvis Exam Back/Spine: Absent: pain with rotation <AideAmie T - 02/15/17 05:53> - Routine Skin Exam Present: intact, dry, warm <AideAmie Zeeshan - 02/15/17 05:53> - Routine Neurological Exam Present: alert, oriented X3, moving all extremities, vision grossly intact, hearing grossly intact, normal speech <AideAmie T - 02/15/17 05:53> - Routine Psychiatric Exam Present: normal affect, normal thought process, cooperative, good insight, good judgment <AideAmie T - 02/15/17 05:53> Results Intake and Output 02/14/17 02/14/17 02/15/17 14:59 22:59 06:59 Other: # Voids 2 Weight 205 lb 0.478 oz Patient Weight 02/15/17 06:59 Weight 205 lb 0.478 oz <AideAmie T - 02/15/17 05:53> - EKG Interpretation EKG shows: bradycardia (02/14/2017 ECG: SB, HR 50, short ABY, T wave abnormality) <AideAmierossana Garcia 02/15/17 05:53> Assessment and Plan - Attestation Attestation Narrative: 02/18/17 15:34 Recommendation After examining the patient I agree with the above assessment. I am involved in the formulation of the patient's plan of care. <Jose Potts - 02/18/17 15:34> - Assessment and Plan (1) Syncopal episodes Status: Acute (2) Bradycardia Status: Acute (3) Palpitations Status: Acute (4) Chest pain Status: Acute <Jose Potts - 02/18/17 15:34> (1) Syncopal episodes Status: Acute Obtain labs done at Dr. Scott's office. including BMP, Mag, TSH, and CBC. cont telemetry to monitor heart rhythm for cause of syncope. (2) Bradycardia Status: Acute monitor tele. check lytes and TSH. (3) Palpitations Status: Acute monitor tele. (4) Chest pain Status: Acute Trop negative x1. ECG shows no acute ischemia. <Amie Noble - 02/15/17 05:58> Hospital Course Summary Disclaimer: The visit summary below is not to be considered part of the above Progress Note. <Jose Potts - 02/18/17 15:34> The visit summary below is not to be considered part of the above Progress Note. <Amie Noble - 02/15/17 05:10>
[2017-02-15 08:31] VITALS: O2SAT 96
[2017-02-15 16:39] VITALS: BP 125/68; PULSE 51; RESP 16; TEMP 96.8
--- NOTE | 2017-02-15 17:31 | Discharge Instructions ---
Discharge Plan - Med Rec/Dispo Referrals/Follow Up: Rubens Guerra MD [Physician] - 1 Week Jose Potts MD [Physician] - [facility] Instructions: Bradycardia (GEN) Prescriptions: No Action Pravachol (pravastatin) 40 mg tablet 40 mg PO DAILY #90 tab Zestoretic (lisinopril 20 mg-hydrochlorothiazide 12.5 mg) tablet 20 tab PO DAILY #90 tab
--- NOTE | 2017-02-15 17:34 | Discharge Instructions ---
Discharge Plan - Med Rec/Dispo Referrals/Follow Up: Jose Potts MD [Physician] - Rubens Guerra MD [Physician] - 1 Week [facility] Instructions: Bradycardia (GEN) Prescriptions: No Action Pravachol (pravastatin) 40 mg tablet 40 mg PO DAILY #90 tab Zestoretic (lisinopril 20 mg-hydrochlorothiazide 12.5 mg) tablet 20 tab PO DAILY #90 tab
[2017-02-15] MEDS ORDERED: PRAVASTATIN 40 MG TABLET PO SCH (21:00)
--- NOTE | 2017-02-16 08:36 | History and Physical ---
CHIEF COMPLAINT Passing out spells. HPI The patient is a 46-year-old female who presented to the office to see Dr. Rubens Guerra on 02/14/2017. Chief complaint was that of two episodes of passing out spells. The first episode happened about 10 days ago when the patient was by herself, so it wasn't witnessed. She could not tell how long she was down for, but she did remember having some symptoms of sweating and being uncomfortable prior to that. The second episode happened about 8 days ago and this was witnessed by several people. The patient was noted to be flushed and sweaty and clammy and then she passed out and also it was noted that the muscles in her legs were tight. The patient was down for about 6 minutes. She was clenching her hands in a very tight posture. Ambulance was called but it was stopped because the patient came around after the episode. I saw this patient about two weeks ago. We have gradually weaned her off metoprolol because she was having low heart rate and low blood pressure and she was also fatigued. She is going through a lot of stress. Her father just a few weeks ago. She does complain of palpitations since we stopped the metoprolol a few days ago. She denies any chest pain at this time. REVIEW OF SYSTEMS Denies any chest pain. No orthopnea. No PND. No leg swelling. Denies any hematochezia. No melena. Denies any TIA or CVA symptoms at this time. Denies any back pain. No fever, chills, nausea, vomiting, diarrhea, dizziness, lightheadedness. PAST MEDICAL HISTORY 1. Hypertension. 2. Metabolic syndrome. 3. Dyslipidemia. 4. Obsessive-compulsive disorder which is chronic. 5. Chronic obesity. PAST SURGICAL HISTORY 1. Laparoscopy in 2000. 2. Shoulder surgery in 2016. FAMILY HISTORY Her father just a few weeks ago. Diabetes mellitus. Myocardial infarction. Hypertension. SOCIAL HISTORY The patient is / and has 3 children. She does not smoke or drink alcohol. CURRENT MEDICATIONS 1. Zestoretic 20/12.5 mg one tablet daily. 2. Pravachol 40 mg one tablet daily. PHYSICAL EXAMINATION GENERAL: Patient looks comfortable, in no distress. VITAL SIGNS: Blood pressure was 100/70. Weight 204 lbs. Height is 5 ft. 4-1/ 2 in. Pulse 64. Temperature 97.8. These were vital signs done at the clinic when I saw this patient early in the morning. Vital signs at the hospital when the patient got to the hospital: blood pressure 132/66 with respiration 18, pulse of 62, temperature 96.8, O2 sat 100% on room air. NECK: Supple. LUNGS: Clear to auscultation bilaterally. No wheezing or rales. CARDIOVASCULAR: Regular rate and rhythm. No murmur. No S3-S4 gallop. ABDOMEN: Soft, nontender. No masses palpable. Bowel sounds normoactive. EXTREMITIES: No cyanosis, clubbing or significant edema. NEURO EXAM: Grossly intact. Lab ordered includes CBC, CMP, TSH, magnesium--pending at the time of dictation. ASSESSMENT 1. Recurrent syncopal episode. 2. Bradycardia. 3. Heart palpitations. 4. Hypertension. 5. Abnormal EKG. EKG shows questionable 2:1 second-degree AV block. PLAN I discussed the patient with Dr. Potts who recommended patient be placed in hospital on outpatient basis on telemetry for observation overnight. We were not able to get ahold of the patient for several hours. Finally, we did and we sent her to the hospital as a direct admission under my name. Dr. Potts has been consulted. [facility]
[2017-02-16] MEDS ORDERED: LISINOPRIL/HCTZ 20/12.5 MG TABLET PO SCH (09:00)
--- NOTE | 2017-02-16 15:12 | Discharge Summary ---
FINAL DIAGNOSES 1. Recurrent syncope. 2. Palpitations. 3. Bradycardia. 4. Hypertension. REASON FOR ADMISSION Patient is a 46-year-old female who presented to the office to see Dr. Guerra with the chief complaint of two episodes of passing out spells within the last 10 days. The first one was unwitnessed with some premonitory warning signs. The second was witnessed. The patient was described as having passed out. It lasted for about 6 minutes. She was clenching her hands in a very tight posture. Prior to that she was flushed and sweaty and clammy. EKG showed no abnormality, some bradycardia, rate of 43, and also maybe a 2:1 degree AV block. This was discussed with Katlyn. He recommended patient be admitted to [facility] on a telemetry observation status. Lab - CBC, CMP, TSH and magnesium were all normal. Troponin I was unremarkable. Followup EKG did not show any acute ischemic changes. Telemetry did not show any significant abnormality. Patient's pulse remained between 46 to 54. HOSPITAL COURSE Consultation was made to Dr. Potts who saw the patient. Recommendation was that patient may go home today, but patient will need to follow up at his office as scheduled. She will need an echocardiogram at that time, possible tilt test, Dr. Potts said. She was medically stable enough to dismiss to home. She was eating and ambulating well without any difficulty. No evidence of passing out spells during the exit examination. DISMISSAL MEDICATION Will go ahead and continue with Zestoretic 20/12.5 mg half a tablet daily. Will hold off on metoprolol until Dr. Potts has totally cleared patient. FOLLOWUP Will see patient in the office in one week. Patient will follow up at Dr. Potts's office. She will call them and see when Dr. Potts wants to see her. Dr. Potts said he is going to let his office know to make arrangements for the echo for this patient. [facility]
== END 2017-02-15 18:07 | disposition home or self-care (01) ==
LOC: MED
PROVIDERS: ADMIT Family Medicine; ATTEND Family Medicine

== ENCOUNTER 2017-04-21 11:21 | Observation (INO) ==
[2017-04-21 13:17] VITALS: BMI 33.3
[2017-04-21] MEDS ORDERED: LEVOFLOXACIN PB 500 MG/100 ML BAG IV SCH (14:00)
--- NOTE | 2017-04-21 15:23 | XRay Report ---
INDICATION: chest pain PROCEDURE: CHEST 2-VIEWS UPRIGHT (PA & LAT) Encounter: Initial COMPARISON: February 18, 2016 FINDINGS: The lungs are clear without evidence of focal abnormal airspace opacity. There is no pleural effusion or pneumothorax. The heart size, mediastinal contours and pulmonary vascularity are within normal limits. Mild degenerative change in the spine. IMPRESSION: No acute cardiopulmonary disease. .
[2017-04-21] MEDS ORDERED: FLECAINIDE 100 MG TABLET PO ONE (15:48)
[2017-04-21] MEDS ORDERED: MEROPENEM 1 GM in NS 100 ML IV SCH (16:00)
--- NOTE | 2017-04-21 16:20 | History and Physical ---
CHIEF COMPLAINT Chest pain. HPI The patient is a 46-year-old female with known history of recurrent chest pain that has been evaluated in the past that starts as palpitations. The patient presented today with acute onset of chest pain that started last night, nearly constant, described as a burning sensation, sharp and dull at times. She is very short of breath when she takes a deep breath. The patient has been seen by Dr. Potts at least on two occasions, planning to do * * with flecainide. I believe they were going to do that in the hospital May 03, 2017. She had an echocardiogram done as well. The patient denies orthopnea. No PND. Denies hematochezia or melena. Denies TIA or seizure symptoms. No symptoms suggestive of urinary tract infection today. The patient is quite short of breath with every breath she takes and is becoming uncomfortable. LABORATORY Pending. PHYSICAL EXAM VITAL SIGNS: Blood pressure 144/66. Temperature 96.2. Pulse 64. Respirations 16. Oxygen saturation 97% on room air. GENERAL: She looks very anxious. NECK: Supple. CHEST: Lungs are essentially clear to auscultation bilaterally. CARDIOVASCULAR: Regular rate and rhythm. No murmur. ABDOMEN: Soft, nontender. No mass is palpable. No organomegaly. Bowel sounds are normoactive. EXTREMITIES: No cyanosis, clubbing or edema. EKG No significant changes compared to the EKG done by Dr. Potts on 02/15/2017. ASSESSMENT 1. Acute chest pain in a 46-year-old female with previous history of chest pain. Exact etiology has not been identified yet. 2. Shortness of breath, or dyspnea. 3. Hypothyroidism. 4. Palpitations. 5. Hypertension. PLAN Admit patient to [facility] under the care of Dr. Rubens Guerra. I have discussed the patient with Dr. Ptots. We are both in agreement that the patient needs additional workup. Lab included CBC, CMP, Troponin I, D-dimer, magnesium, TSH, UA, sedimentation rate as well as chest x-ray. [facility]
--- NOTE | 2017-04-21 16:34 | Cardiology Consult Note ---
<Mckenzie Sow - Last Filed: 04/21/17 16:24> History of Present Illness Consult date: 04/21/17 Requesting physician: Rubens Guerra Consult reason: chest pain Chief complaint: chest pain History of present illness: Ximena is a 46 year old woman who is known to Dr. Light with a history of chest pain, palpitations, HTN, DSLD obesity and endometriosis. She presented today to Dr. Guerra's office with chief complaint of chest pain that started last night. It has just been constant since that time, described as burning sensation, shooting pain and some dullness as well. At times this is associated with lightheadedness. No radiation of chest pain to another part of the body. Does have a little bit of headache as well. The chest pain is associated with shortness of breath. She was last seen n the clinic by Dr. Potts on April 05 with complaints of intermittant palpitations. Recent Holter monitor showed SR, Sinus maritza, sinus tach, HR 42-120, frequent PVCs, occasional couplets, occasional PACs with short run of PAT, likely A Fib. She was scheduled for antiarrhythmic therapy on Flecainide for 05/03/17, however in light of her admission today and consult to Dr. Potts we will proceed with antiarrhythmic therapy today for atrial fibrillation and PVCs. Review of Systems - Constitutional Constitutional: Absent: chills, fatigue, fever(s) - EENMT Eyes: Absent: change in vision Balance: Absent: vertigo Mouth/Throat: Absent: sore throat - Cardiovascular Cardiovascular: Present: chest pain, palpitations, dyspnea on exertion. Absent : syncope, edema Vascular: Absent: pedal edema - Respiratory Respiratory: Absent: cough - Gastrointestinal Gastrointestinal: Absent: abdominal pain, constipation, diarrhea, nausea, vomiting - Genitourinary Genitourinary: Absent: dysuria - Integumentary/Breasts Integumentary: Absent: rash - Neurological Neurological: Present: dizziness - Endocrine Endocrine: Present: palpitations PFSH Patient Stated Medical History Seizures Yes: just recently Syncope Yes Angina Yes Hypertension Yes Hypotension Yes Pneumonia Yes: years ago Hx Urinary Tract Infection Yes: in the past Anesthesia Reactions Yes: dentist Obsessive Compulsive Disorder Yes: in the past, went through therapy Abnormal Pap Yes Endometriosis Yes Clinic Medical History (Last Updated 01/26/17 @ 08:43 by RONALD Valles) Syncopal episodes (Acute Medical) Bradycardia (Acute Medical) Palpitations (Acute Medical) Chest pain (Acute Medical) HTN (hypertension) (Chronic Medical) Hypercholesteremia (Chronic Medical) Metabolic syndrome (Chronic Medical) OCD (obsessive compulsive disorder) (Chronic Medical) Obesity (Chronic Medical) Surgical History: [id number]. shoulder surgery 07/2015. 3 laproscopic surgeries for endometriosis. Family History: Family History (Last Updated 01/26/17 @ 08:46 by RONALD Valles) Father , 54 Diabetes mellitus Myocardial infarction Unknown Diabetes mellitus Hypertension Unknown Stroke Heart disease Lung disease - Social History Smoking status: Current some day smoker Substance use type: does not use Alcohol intake frequency: holidays/special occasions only Housing: house Household members: spouse, children Current occupational status: employed Medications Home Medications Medication Instructions Recorded Confirmed Type biotin 10,000 mcg capsule 15,000 mcg PO DAILY cap 02/22/17 04/21/17 History pediatric multivitamin no.42 1 tab PO DAILY tab 02/22/17 04/21/17 History chewable tablet Cyanocobalamin (B-12) [Vit. B-12] 500 mcg PO DAILY 04/21/17 04/21/17 History Allergies Allergy/AdvReac Type Severity Reaction Status Date / Time No Known Allergies Allergy Verified 04/21/17 13:43 Exam Vital signs: Temperature 96.9 F 04/21/17 16:01 Pulse Rate 50 L 04/21/17 16:01 Respiratory Rate 18 04/21/17 16:01 Blood Pressure 117/62 04/21/17 16:01 Pulse Oximetry 97 04/21/17 16:01 - Constitutional no acute distress, well nourished, obese, cooperative - Routine HEENT Exam Head: Present: normocephalic ENT: Present: mucous membranes moist - Routine Neck Exam Absent: JVD, carotid bruit - Routine Chest/Breast/Axilla Exam Chest wall: Absent: tenderness - Routine Respiratory Exam Present: CTA bilaterally. Absent: rales, crackles - Routine Cardiovascular Exam Present: murmur (II/), irregular rhythm - Routine Abdominal Exam Present: soft, normoactive bowel sounds - Routine Extremities Exam Present: no edema - Routine Skin Exam Present: intact, dry, warm - Routine Neurological Exam Present: alert, oriented X3 - Routine Psychiatric Exam Present: normal affect, normal thought process Results 04/21/17 14:41 04/21/17 14:41 CBC 04/21/17 Range/Units 14:41 WBC 8.2 (4.5-11.0) T/MM3 RBC 4.70 (4.00-5.20) M/MM3 Hgb 13.3 (12-16) GM/DL Hct 41.5 (36-46) % Plt Count 310 (130-400) T/MM3 Neut # (Auto) 4.8 (1.8-7.7) T/MM3 Lymph # (Auto) 2.4 (1-4.8) T/MM3 [place] # (Auto) 0.4 (0-0.8) T/MM3 Eos # (Auto) 0.6 H (0-0.5) T/MM3 Baso # (Auto) 0.0 (0-0.2) T/MM3 Intake and Output 04/21/17 04/21/17 04/21/17 06:59 14:59 22:59 Other: Urine Appearance Clear Urine Color Yellow # Voids 1 Weight 193 lb 12.581 oz Patient Weight 04/22/17 06:59 Weight 193 lb 12.581 oz - Imaging and Cardiology Imaging & Cardiology Narrative: = = = = = = = = = = = = = = = = = = = = = = = = = = = = = = = = = = = = = = = = = = = = = = = = = = = = = = = = = = = Date of Exam: 04/21/17 Ordering Provider: Rubens Guerra MD Type of Exam(s): XR chest 2V Reason for Exam(s): chest pain INDICATION: chest pain PROCEDURE: CHEST 2-VIEWS UPRIGHT (PA & LAT) Encounter: Initial COMPARISON: February 18, 2016 FINDINGS: The lungs are clear without evidence of focal abnormal airspace opacity. There is no pleural effusion or pneumothorax. The heart size, mediastinal contours and pulmonary vascularity are within normal limits. Mild degenerative change in the spine. IMPRESSION: No acute cardiopulmonary disease. 04/21/17 16:38 - EKG Interpretation EKG: sinus rhythm EKG interpretations - EKG EKG results cardiology: sinus rhythm Assessment and Plan - Assessment and Plan (1) Chest pain Status: Acute Not likely cardiac etiology due to patient's description of pain - Will trend serial troponin levels (2) Palpitations Status: Acute Recent Holter monitor showed SR, Sinus maritza, sinus tach, HR 42-120, frequent PVCs, occasional couplets, occasional PACs with short run of PAT, likely A Fib. (3) Paroxysmal atrial fibrillation Status: Acute Recent Holter showed runs of PAT, likely A Fib. - Check TSH, MAG - EKG now, if SR start AAT - Flecainide 100mg X1 then 50mg BID - EKG in am (4) Ventricular premature depolarization Status: Acute Recent Holter showed runs of PAT, likely A Fib. - Check TSH, MAG - EKG now, if SR start AAT - Flecainide 100mg X1 then 50mg BID - EKG in am (5) Essential (primary) hypertension Status: Acute Well controlled on current therapy, continue with current therapy with routine monitoring (6) Mixed hyperlipidemia Status: Acute takes Pravastatin, PCP manages - Assessment and Plan Chest pain: Not likely cardiac etiology due to patient's description of pain - Will trend serial troponin levels Palpitations: Recent Holter monitor showed SR, Sinus maritza, sinus tach, HR 42- 120, frequent PVCs, occasional couplets, occasional PACs with short run of PAT, likely A Fib. A Fib/ PVCs: Recent Holter showed runs of PAT, likely A Fib. - Check TSH, MAG - EKG now, if SR start AAT - Flecainide 100mg X1 then 50mg BID - EKG in am HTN: Well controlled on current therapy, continue with current therapy with routine monitoring HLD: takes Pravastatin, PCP manages Thank you for allowing us to participate in the care of your patient. Hospital Course Summary Disclaimer: The visit summary below is not to be considered part of the above Progress Note. <Jose Potts - Last Filed: 04/25/17 15:54> [facility] Patient Stated Medical History Seizures Yes: just recently Syncope Yes Angina Yes Hypertension Yes Hypotension Yes Pneumonia Yes: years ago Hx Urinary Tract Infection Yes: in the past Anesthesia Reactions Yes: dentist Obsessive Compulsive Disorder Yes: in the past, went through therapy Abnormal Pap Yes Endometriosis Yes Clinic Medical History (Last Updated 01/26/17 @ 08:43 by RONALD Valles) Syncopal episodes (Acute Medical) Bradycardia (Acute Medical) Palpitations (Acute Medical) Chest pain (Acute Medical) Paroxysmal atrial fibrillation (Acute Medical) Ventricular premature depolarization (Acute Medical) Essential (primary) hypertension (Acute Medical) Mixed hyperlipidemia (Acute Medical) HTN (hypertension) (Chronic Medical) Hypercholesteremia (Chronic Medical) Metabolic syndrome (Chronic Medical) OCD (obsessive compulsive disorder) (Chronic Medical) Obesity (Chronic Medical) Family History: Family History (Last Updated 01/26/17 @ 08:46 by Saida Valentine Emiliano) Father , 54 Diabetes mellitus Myocardial infarction Unknown Diabetes mellitus Hypertension Unknown Stroke Heart disease Lung disease Exam Vital signs: Temperature 96.4 F L 04/22/17 08:41 Pulse Rate 49 L 04/22/17 08:41 Respiratory Rate 16 04/22/17 08:41 Blood Pressure 125/66 04/22/17 11:57 Pulse Oximetry 96 04/22/17 08:41 Results 04/21/17 14:41 04/21/17 14:41 Assessment and Plan - Attestation Attestation Narrative: 04/25/17 15:54 Recommendation After examining the patient I agree with the above assessment. I am involved in the formulation of the patient's plan of care. - Assessment and Plan (1) Palpitations Status: Acute (2) Chest pain Status: Acute (3) Paroxysmal atrial fibrillation Status: Acute (4) Ventricular premature depolarization Status: Acute (5) Essential (primary) hypertension Status: Acute (6) Mixed hyperlipidemia Status: Acute Hospital Course Summary Disclaimer: The visit summary below is not to be considered part of the above Progress Note.
[2017-04-21] MEDS: SALINE FLUSH 10ml SYRINGE IV PRN (16:40)
[2017-04-21] MEDS ORDERED: PRAVASTATIN 40 MG TABLET PO SCH (21:00)
[2017-04-21 23:50] VITALS: RESP 16
[2017-04-22] MEDS ORDERED: PANTOPRAZOLE 40 MG TABLET PO SCH (06:30)
[2017-04-22 08:42] VITALS: PULSE 49; TEMP 96.4; O2SAT 96
[2017-04-22] MEDS: LISINOPRIL 20 MG TABLET PO SCH ×2 (08:43→11:57)
[2017-04-22] MEDS: SALINE FLUSH 10ml SYRINGE IV PRN (08:52)
[2017-04-22] MEDS ORDERED: PRAVASTATIN 40 MG TABLET PO SCH (09:00)
[2017-04-22] MEDS ORDERED: ASPIRIN *EC* 81 MG TABLET PO SCH (09:00)
[2017-04-22] MEDS ORDERED: FLECAINIDE 50 MG TABLET PO SCH (09:00)
[2017-04-22] MEDS ORDERED: LISINOPRIL 10 MG TABLET PO SCH (10:00)
[2017-04-22 11:57] VITALS: BP 125/66
--- NOTE | 2017-04-22 14:13 | Cardiology Progress Note ---
<Mckenzie Sow - Last Filed: 04/22/17 14:24> Subjective Principal diagnosis: afib Interval history: Ximena is seen in follow up for atrial fibrillation. She is in bed, denies cardiac complaints. Exam Vital signs: Temperature 96.4 F L 04/22/17 08:41 Pulse Rate 49 L 04/22/17 08:41 Respiratory Rate 16 04/22/17 08:41 Blood Pressure 125/66 04/22/17 11:57 Pulse Oximetry 96 04/22/17 08:41 - Constitutional no acute distress, well nourished, cooperative - Routine HEENT Exam Head: Present: normocephalic ENT: Present: mucous membranes moist - Routine Neck Exam Absent: JVD, carotid bruit - Routine Chest/Breast/Axilla Exam Chest wall: Absent: tenderness - Routine Respiratory Exam Present: CTA bilaterally. Absent: rales, wheezes - Routine Cardiovascular Exam Present: RRR, murmur (II/) - Routine Abdominal Exam Present: soft, normoactive bowel sounds - Routine Extremities Exam Present: no edema - Routine Skin Exam Present: intact, dry, warm - Routine Neurological Exam Present: alert, oriented X3 - Routine Psychiatric Exam Present: normal affect, normal thought process - Additional findings Additional findings: Aspirin (Ecotrin) 81 mg PO DAILY [facility] Last Admin: 04/22/17 08:43 Dose: 81 mg Flecainide Acetate (Tambocor) 50 mg PO BID [facility] Last Admin: 04/22/17 08:43 Dose: 50 mg Lisinopril (Prinivil) 10 mg PO DAILY [facility] Last Admin: 04/22/17 11:57 Dose: 10 mg Pantoprazole Sodium (Protonix Tab) 40 mg PO ACB [facility] Last Admin: 04/22/17 06:13 Dose: 40 mg Pravastatin Sodium (Pravachol) 40 mg PO HS [facility] Sodium Chloride (Iv Flush) 10 - 80 ml IV PRN PRN PRN Reason: Flushing Last Admin: 04/22/17 08:52 Dose: 10 ml Results 04/21/17 14:41 04/21/17 14:41 Cardiac Enzymes 04/21/17 04/21/17 04/22/17 Range/Units 14:41 21:30 03:13 AST 17 (14-36) U/L Troponin I < 0.012 < 0.012 < 0.012 (0-0.12) ng/ml 04/22/17 Range/Units 09:08 AST (14-36) U/L Troponin I < 0.012 (0-0.12) ng/ml CBC 04/21/17 Range/Units 14:41 WBC 8.2 (4.5-11.0) T/MM3 RBC 4.70 (4.00-5.20) M/MM3 Hgb 13.3 (12-16) GM/DL Hct 41.5 (36-46) % Plt Count 310 (130-400) T/MM3 Neut # (Auto) 4.8 (1.8-7.7) T/MM3 Lymph # (Auto) 2.4 (1-4.8) T/MM3 [place] # (Auto) 0.4 (0-0.8) T/MM3 Eos # (Auto) 0.6 H (0-0.5) T/MM3 Baso # (Auto) 0.0 (0-0.2) T/MM3 Comprehensive Metabolic Panel 04/21/17 Range/Units 14:41 Sodium 144 (134-144) MEQ/L Potassium 3.8 (3.6-5) MEQ/L Chloride 107 (98-107) MEQ/L Carbon Dioxide 27 (22-30) MEQ/L BUN 17.0 (7-17) MG/DL Creatinine 0.7 (0.7-1.2) MG/DL Glucose 98 (65-110) MG/DL Calcium 9.6 (8.4-10.2) MG/DL AST 17 (14-36) U/L ALT 23 (9-52) U/L Alkaline Phosphatase 63 (38-126) U/L Total Protein 7.2 (6.3-8.2) G/DL Albumin 4.0 (3.5-5.0) G/DL Intake and Output 04/21/17 04/22/17 04/22/17 22:59 06:59 14:59 Intake Total 200 / 200 200 / 200 325 / 325 Balance 200 / 200 200 / 200 325 / 325 Intake: Oral 200 / 200 200 / 200 325 / 325 Other: # Voids 1 2 Weight 194 lb 10.691 oz Patient Weight 04/23/17 06:59 Weight 194 lb 10.691 oz Assessment and Plan - Assessment and Plan (1) Chest pain Status: Acute Not likely cardiac etiology. (2) Palpitations Status: Acute Improved. - Stop Metoprolol as is bradycardic (3) Paroxysmal atrial fibrillation Status: Acute Aspirin 81mg daily (4) Ventricular premature depolarization Status: Acute (5) Essential (primary) hypertension Status: Acute (6) Mixed hyperlipidemia Status: Acute - Assessment and Plan 04/21/17 Chest pain: Not likely cardiac etiology due to patient's description of pain - Will trend serial troponin levels Palpitations: Recent Holter monitor showed SR, Sinus maritza, sinus tach, HR 42- 120, frequent PVCs, occasional couplets, occasional PACs with short run of PAT, likely A Fib. A Fib/ PVCs: Recent Holter showed runs of PAT, likely A Fib. - Check TSH, MAG - EKG now, if SR start AAT - Flecainide 100mg X1 then 50mg BID - EKG in am HTN: Well controlled on current therapy, continue with current therapy with routine monitoring HLD: takes Pravastatin, PCP manages Thank you for allowing us to participate in the care of your patient. 04/22/17 - Stop Metoprolol as is bradycardic - Continue Aspirin 81mg daily Hospital Course Summary Disclaimer: The visit summary below is not to be considered part of the above Progress Note. <Jose Potts - Last Filed: 04/25/17 15:55> Exam Vital signs: Temperature 96.4 F L 04/22/17 08:41 Pulse Rate 49 L 04/22/17 08:41 Respiratory Rate 16 04/22/17 08:41 Blood Pressure 125/66 04/22/17 11:57 Pulse Oximetry 96 04/22/17 08:41 Results 04/21/17 14:41 04/21/17 14:41 Assessment and Plan - Assessment and Plan (1) Palpitations Status: Acute (2) Chest pain Status: Acute (3) Paroxysmal atrial fibrillation Status: Acute (4) Ventricular premature depolarization Status: Acute (5) Essential (primary) hypertension Status: Acute (6) Mixed hyperlipidemia Status: Acute - Attestation Attestation Narrative: 04/25/17 15:54 Recommendation After examining the patient I agree with the above assessment. I am involved in the formulation of the patient's plan of care. Hospital Course Summary Disclaimer: The visit summary below is not to be considered part of the above Progress Note.
--- NOTE | 2017-04-23 10:02 | Discharge Summary ---
FINAL DIAGNOSES 1. Chest pain, most likely noncardiac etiology. 2. Shortness of breath. 3. Cardiac dysrhythmia as per Dr. Potts. 4. Hypothyroidism. 5. Palpitations. 6. Hypertension. REASON FOR ADMISSION Patient is a 46-year-old female who presented to the office with chief complaint of chest pain that started about 24 hours ago. She described that pain as a burning sensation, sharp and dull at times. She is very short of breath when she takes a deep breath, she said. She has been seen by Dr. Potts on at least two occasions as well. On physical examination the patient looks anxious. Other than that, vital signs were fairly stable. Physical examination was unremarkable. Lab included CBC, D-dimer, CMP including TSH which were all normal. Troponin I was normal. Chest x-ray was normal. EKG showed no significant changes from previous EKG. HOSPITAL COURSE The patient was admitted to the medical floor on an outpatient basis under the care of Dr. Rubens Guerra. Dr. Potts, patient's burnt lime drawer, was consulted and saw the patient. He started the patient on flecainide 50 mg p.o. b.i.d. The patient developed a low pulse last night. We talked to Dr. Potts. The patient's pulse is stable at this time. She is not having any more chest pain, nausea or vomiting. This patient is medically stable to be dismissed to home today after being seen by Dr. Potts in lieu of recent high-risk medication use of flecainide. DISCHARGE MEDICATIONS 1. Aspirin 81 mg one tablet daily. 2. Flecainide 50 mg p.o. b.i.d. 3. Lisinopril 10 mg one tablet daily. 4. Metoprolol 25 mg one tablet daily. 5. Protonix 40 mg one tablet with breakfast. 6. Pravastatin 40 mg daily. FOLLOWUP The patient will follow up with Dr. Potts as scheduled. I will see her back as previously scheduled. [facility]
[2017-04-23] MEDS ORDERED: --POM--PRAVASTATIN 40 MG TABLET PO SCH (21:00)
== END 2017-04-22 17:18 | disposition home or self-care (01) ==
LOC: MED
PROVIDERS: ADMIT Family Medicine; ATTEND Family Medicine